=== PATIENT | male | born 1945 | race Caucasian/White ===

== ENCOUNTER 2020-12-24 11:26 | Outpatient (CLI) | payer MEDICARE, OTHER | END 2020-12-24 11:27 | disposition home or self-care (01) | LOC: CSHMRI 11:26 | PROVIDERS: ATTEND Neurological Surgery | DX: G95.89 Other specified diseases of spinal cord (principal); M47.812 Spondylosis without myelopathy or radiculopathy, cervical region | CPT/HCPCS: 72141 ==

== ENCOUNTER 2021-04-22 14:28 | Inpatient (IN) | payer MEDICARE, OTHER ==
[2021-04-22 15:08] LABS: #Eosinphils 0.2 10x3/uL (0.0-0.5); #Monocytes 0.7 10x3/uL (0.0-1.1); #Neutrophils 6.1 10x3/uL (1.5-8.4); %Basophils 0.2 % (0.0-2.0); %Eosinophils 2.3 % (0.0-6.0); %Lymphocytes 19.3 % (18.0-47.0); %Monocytes 7.8 % (0.0-10.0); %Neutrophils 70.1 % (40.0-75.0); Hemoglobin 10.4 g/dL (13.5-17.5); Mean Corpuscular HGB CONC 31.2 g/dL (32.0-36.0); Mean Platelet Volume 10.7 fl (7.4-10.4); Platelet Count 164 10x3/uL (150-450); RBC Distribution Width 15.4 % (11.5-14.5); Red Blood Cell (RBC) Count 3.47 10x6/uL (4.32-5.72); White Blood Cell (WBC) Count 8.7 10x3/uL (3.5-10.5)
[2021-04-22 15:25] LABS: ALT (SGPT) 17 U/L (8-55); AST (SGOT) 14 U/L (5-34); Albumin 3.4 g/dL (3.4-4.8); Alkaline Phosphatase 60 U/L (40-110); Anion Gap 13 mmol/L (10-20); BUN (Urea Nitrogen) 56 mg/dL (8.4-25.7); Bilirubin, Total 0.3 mg/dL (0.2-1.2); Calc. Creatinine Clearance 0 mL/min (70-130); Calcium 8.2 mg/dL (7.8-10.44); Carbon Dioxide 22 mmol/L (23-31); Chloride 114 mmol/L (98-107); Globulin 1.7 g/dL (2.4-3.5); Glucose 112 mg/dL (83-110); Potassium 5.7 mmol/L (3.5-5.1); Protein, Total 5.1 g/dL (5.8-8.1); Sodium 143 mmol/L (136-145)
[2021-04-22 15:48] LABS: CKMB 4.1 ng/mL (0-6.6)
[2021-04-22] MEDS ORDERED: Aspirin Chewable 81 MG TAB ONE (17:33)
[2021-04-22] MEDS ORDERED: Nitroglycerin 2% Ointment 1 INCH/1 GM Packet ONE (17:34)
[2021-04-22] MEDS ORDERED: Senokot S 8.6-50 MG TAB PO PRN (19:00)
[2021-04-22 19:52] VITALS: BMI 33.7
[2021-04-22] MEDS ORDERED: Amlodipine 5 MG TAB PO SCH (20:00)
[2021-04-22] MEDS ORDERED: hydrALAZINE 20 MG/ML VIAL SLOW IVP SCH (20:00)
[2021-04-22] MEDS ORDERED: Atorvastatin Calcium 20 MG TAB PO SCH (21:00)
[2021-04-22] MEDS ORDERED: hydrALAZINE 25 MG TAB PO SCH (21:00)
[2021-04-22] MEDS ORDERED: Famotidine 20 MG TAB PO SCH (21:00)
[2021-04-22] MEDS ORDERED: Tamsulosin HCl 0.4 MG CAP PO SCH (21:00)
[2021-04-22 21:49] LABS: Troponin I 0.041 ng/mL (< 0.028)
[2021-04-22] MEDS ORDERED: Gabapentin 100 MG CAP PO SCH (22:00)
[2021-04-22] MEDS ORDERED: Melatonin 3 MG TAB PO SCH (22:00)
[2021-04-23] MEDS: Acetaminophen 325 MG TAB PO PRN ×2 (02:58→10:53)
[2021-04-23] MEDS ORDERED: Furosemide 100 MG/10 ML VIAL SLOW IVP SCH (03:30)
[2021-04-23] MEDS ORDERED: Labetalol HCl 100 MG/20 ML VIAL SLOW IVP SCH (03:30)
[2021-04-23 04:36] LABS: ALT (SGPT) 15 U/L (8-55); AST (SGOT) 20 U/L (5-34); Albumin 2.9 g/dL (3.4-4.8); Alkaline Phosphatase 49 U/L (40-110); Anion Gap 14 mmol/L (10-20); BUN (Urea Nitrogen) 56 mg/dL (8.4-25.7); Bilirubin, Total 0.3 mg/dL (0.2-1.2); Calc. Creatinine Clearance 37 mL/min (70-130); Calcium 8.2 mg/dL (7.8-10.44); Carbon Dioxide 19 mmol/L (23-31); Chloride 115 mmol/L (98-107); Globulin 1.9 g/dL (2.4-3.5); Glucose 127 mg/dL (83-110); Potassium 5.7 mmol/L (3.5-5.1); Protein, Total 4.8 g/dL (5.8-8.1); Sodium 142 mmol/L (136-145)
[2021-04-23 04:39] LABS: #Eosinphils 0.2 10x3/uL (0.0-0.5); #Monocytes 0.7 10x3/uL (0.0-1.1); #Neutrophils 5.3 10x3/uL (1.5-8.4); %Basophils 0.4 % (0.0-2.0); %Eosinophils 2.1 % (0.0-6.0); %Lymphocytes 21.1 % (18.0-47.0); %Monocytes 9.1 % (0.0-10.0); %Neutrophils 66.8 % (40.0-75.0); Hemoglobin 9.9 g/dL (13.5-17.5); Mean Corpuscular HGB CONC 31.6 g/dL (32.0-36.0); Mean Corpuscular Hemoglobin 30.4 pg (27.0-33.0); Mean Platelet Volume 11.1 fl (7.4-10.4); Platelet Count 146 10x3/uL (150-450); RBC Distribution Width 15.3 % (11.5-14.5); Red Blood Cell (RBC) Count 3.26 10x6/uL (4.32-5.72)
[2021-04-23] MEDS ORDERED: Furosemide 40 MG TAB PO SCH (07:30)
[2021-04-23] MEDS ORDERED: Enoxaparin Sodium 30 MG/0.3 ML SYRINGE ONE (08:17)
[2021-04-23] MEDS: hydrALAZINE 20 MG/ML VIAL SLOW IVP PRN ×2 (08:18→16:20)
[2021-04-23] MEDS: hydrALAZINE 25 MG TAB PO SCH ×2 (08:40→15:17)
[2021-04-23] MEDS ORDERED: Amlodipine 10 MG TAB PO SCH (09:00)
[2021-04-23] MEDS ORDERED: Allopurinol 300 MG TAB PO SCH (09:00)
[2021-04-23] MEDS ORDERED: Enoxaparin Sodium 30 MG/0.3 ML SYRINGE SC SCH (09:00)
[2021-04-23 12:12] VITALS: BP 190/76; TEMP 97.8
[2021-04-23 15:26] LABS: #Eosinphils 0.2 10x3/uL (0.0-0.5); #Monocytes 0.7 10x3/uL (0.0-1.1); %Basophils 0.5 % (0.0-2.0); %Lymphocytes 17.7 % (18.0-47.0); %Monocytes 7.8 % (0.0-10.0); %Neutrophils 71.6 % (40.0-75.0); Hemoglobin 10.1 g/dL (13.5-17.5); Mean Corpuscular Hemoglobin 30.1 pg (27.0-33.0); Mean Corpuscular Volume 94.3 fl (81.2-95.1); Mean Platelet Volume 10.7 fl (7.4-10.4); Platelet Count 147 10x3/uL (150-450); RBC Distribution Width 15.3 % (11.5-14.5); Red Blood Cell (RBC) Count 3.35 10x6/uL (4.32-5.72); White Blood Cell (WBC) Count 8.4 10x3/uL (3.5-10.5)
[2021-04-23 15:38] LABS: Magnesium 1.9 mg/dL (1.6-2.6)
[2021-04-23 18:33] LABS: SARS-CoV-2 PCR by NAA Not Detected (NotDetected)
[2021-04-23] MEDS ORDERED: Donepezil HCl 5 MG TAB PO SCH (21:00)
== END 2021-04-23 16:52 | disposition left against medical advice (07) | DRG 683 ==
LOC: CSHERS 14:28 → SUATTDRO 14:28 → CSHTELE 19:47 → OBSVTOIN 19:48
PROVIDERS: ADMIT Family Medicine; ATTEND Family Medicine
DX: I12.9 Hypertensive chronic kidney disease with stage 1 through stage 4 chronic kidney disease, or unspecified chronic kidney disease (principal); N17.9 Acute kidney failure, unspecified; E78.5 Hyperlipidemia, unspecified; N40.0 Benign prostatic hyperplasia without lower urinary tract symptoms; Z20.822 Contact with and (suspected) exposure to COVID-19; N18.9 Chronic kidney disease, unspecified; F32.A Depression, unspecified; Z88.8 Allergy status to other drugs, medicaments and biological substances; Z79.899 Other long term (current) drug therapy
CPT/HCPCS: 36415; 71045; 80053; 82553; 83735; 83880; 84484; 85025; 93005; 93010; G0378; J0360; J1650; J1940; U0003; U0005

== ENCOUNTER 2021-12-20 10:06 | Emergency (ER) | payer MEDICARE ==
[2021-12-20 10:35] LABS: #Eosinphils 0.2 10x3/uL (0.0-0.5); #Monocytes 0.7 10x3/uL (0.0-1.1); #Neutrophils 4.7 10x3/uL (1.5-8.4); %Basophils 0.5 % (0.0-2.0); %Eosinophils 2.3 % (0.0-6.0); %Lymphocytes 35.1 % (18.0-47.0); %Monocytes 7.6 % (0.0-10.0); Hemoglobin 8.1 g/dL (13.5-17.5); Mean Corpuscular HGB CONC 32.1 g/dL (32.0-36.0); Mean Corpuscular Hemoglobin 30.3 pg (27.0-33.0); Mean Corpuscular Volume 94.4 fl (81.2-95.1); Mean Platelet Volume 10.6 fl (7.4-10.4); Platelet Count 156 10x3/uL (150-450); RBC Distribution Width 14.7 % (11.5-14.5); Red Blood Cell (RBC) Count 2.67 10x6/uL (4.32-5.72); White Blood Cell (WBC) Count 8.8 10x3/uL (3.5-10.5)
[2021-12-20 11:24] LABS: CKMB 2.4 ng/mL (0-6.6)
[2021-12-20 11:38] LABS: ALT (SGPT) 10 U/L (8-55); AST (SGOT) 18 U/L (5-34); Albumin 3.5 g/dL (3.4-4.8); Alkaline Phosphatase 75 U/L (40-110); Anion Gap 15 mmol/L (10-20); BUN (Urea Nitrogen) 35 mg/dL (8.4-25.7); Bilirubin, Total 0.5 mg/dL (0.2-1.2); Calc. Creatinine Clearance 0 mL/min (70-130); Calcium 8.6 mg/dL (7.8-10.44); Carbon Dioxide 20 mmol/L (23-31); Chloride 113 mmol/L (98-107); Estimated GFR 22; Globulin 2.1 g/dL (2.4-3.5); Glucose 154 mg/dL (83-110); Lipase 64 U/L (8-78); Potassium 3.7 mmol/L (3.5-5.1); Protein, Total 5.6 g/dL (5.8-8.1); Sodium 144 mmol/L (136-145)
== END 2021-12-20 13:50 | disposition short-term general hospital (02) ==
LOC: CSHERS 10:06
DX: I11.0 Hypertensive heart disease with heart failure (principal); I50.9 Heart failure, unspecified; I48.91 Unspecified atrial fibrillation; E78.5 Hyperlipidemia, unspecified; E78.00 Pure hypercholesterolemia, unspecified; K21.9 Gastro-esophageal reflux disease without esophagitis
CPT/HCPCS: 71045; 80053; 82553; 83690; 83880; 84484; 85025; 93005; 94760

== ENCOUNTER 2022-01-23 22:23 | Emergency (ER) | payer OTHER ==
[2022-01-23 23:14] LABS: #Basophils 0.1 10x3/uL (0.0-0.2); #Eosinphils 0.1 10x3/uL (0.0-0.5); #Monocytes 0.8 10x3/uL (0.0-1.1); #Neutrophils 5.6 10x3/uL (1.5-8.4); %Basophils 0.6 % (0.0-2.0); %Eosinophils 0.9 % (0.0-6.0); %Lymphocytes 15.5 % (18.0-47.0); %Monocytes 10.3 % (0.0-10.0); %Neutrophils 72.2 % (40.0-75.0); Hemoglobin 6.9 g/dL (13.5-17.5); Mean Corpuscular HGB CONC 31.8 g/dL (32.0-36.0); Mean Corpuscular Hemoglobin 28.6 pg (27.0-33.0); Mean Platelet Volume 9.3 fl (7.4-10.4); Platelet Count 225 10x3/uL (150-450); RBC Distribution Width 15.1 % (11.5-14.5); Red Blood Cell (RBC) Count 2.41 10x6/uL (4.32-5.72); White Blood Cell (WBC) Count 7.7 10x3/uL (3.5-10.5)
[2022-01-23 23:33] LABS: ALT (SGPT) 17 U/L (8-55); AST (SGOT) 20 U/L (5-34); Albumin 2.9 g/dL (3.4-4.8); Alkaline Phosphatase 95 U/L (40-110); Anion Gap 14 mmol/L (10-20); BUN (Urea Nitrogen) 52 mg/dL (8.4-25.7); Bilirubin, Total 0.3 mg/dL (0.2-1.2); Calc. Creatinine Clearance 0 mL/min (70-130); Calcium 8.3 mg/dL (7.8-10.44); Carbon Dioxide 18 mmol/L (23-31); Chloride 114 mmol/L (98-107); Estimated GFR 16; Globulin 2.5 g/dL (2.4-3.5); Glucose 109 mg/dL (83-110); Magnesium 1.9 mg/dL (1.6-2.6); Potassium 5.9 mmol/L (3.5-5.1); Protein, Total 5.4 g/dL (5.8-8.1); Sodium 140 mmol/L (136-145)
[2022-01-23 23:56] LABS: CKMB 1.9 ng/mL (0-6.6)
== END 2022-01-24 01:32 | disposition short-term general hospital (02) ==
LOC: CSHERS 22:23
DX: D64.9 Anemia, unspecified (principal); R79.89 Other specified abnormal findings of blood chemistry; R53.1 Weakness; K21.9 Gastro-esophageal reflux disease without esophagitis; E78.00 Pure hypercholesterolemia, unspecified; I10 Essential (primary) hypertension
CPT/HCPCS: 36415; 71045; 80053; 82553; 83735; 83880; 84484; 85025; 86850; 86900; 86901; 93005

== ENCOUNTER 2022-04-05 14:03 | Outpatient (CLI) | payer OTHER, MEDICARE | END 2022-04-05 14:04 | disposition home or self-care (01) | LOC: CSHRAD 14:03 | PROVIDERS: ATTEND Thoracic Surgery (Cardiothoracic Vascular Surgery) | DX: J86.9 Pyothorax without fistula (principal); J90 Pleural effusion, not elsewhere classified | CPT/HCPCS: 71046 ==

== ENCOUNTER 2022-05-05 13:19 | Inpatient (IN) | payer OTHER, MEDICARE ==
[2022-05-05 14:28] LABS: #Eosinphils 0.1 10x3/uL (0.0-0.5); #Monocytes 0.8 10x3/uL (0.0-1.1); #Neutrophils 8.3 10x3/uL (1.5-8.4); %Basophils 0.4 % (0.0-2.0); %Eosinophils 0.7 % (0.0-6.0); %Lymphocytes 15.8 % (18.0-47.0); %Monocytes 7.1 % (0.0-10.0); %Neutrophils 75.5 % (40.0-75.0); Mean Corpuscular HGB CONC 33.2 g/dL (32.0-36.0); Mean Corpuscular Hemoglobin 30.7 pg (27.0-33.0); Mean Corpuscular Volume 92.3 fl (81.2-95.1); Mean Platelet Volume 10.9 fl (7.4-10.4); Platelet Count 128 10x3/uL (150-450); RBC Distribution Width 17.3 % (11.5-14.5); Red Blood Cell (RBC) Count 2.61 10x6/uL (4.32-5.72)
[2022-05-05 14:40] LABS: ALT (SGPT) 12 U/L (8-55); AST (SGOT) 16 U/L (5-34); Albumin 3.3 g/dL (3.4-4.8); Alkaline Phosphatase 58 U/L (40-110); Anion Gap 12 mmol/L (10-20); BUN (Urea Nitrogen) 67 mg/dL (8.4-25.7); Bilirubin, Total 0.4 mg/dL (0.2-1.2); Calc. Creatinine Clearance 0 mL/min (70-130); Calcium 8.4 mg/dL (7.8-10.44); Carbon Dioxide 17 mmol/L (23-31); Chloride 118 mmol/L (98-107); Estimated GFR 16; Glucose 110 mg/dL (83-110); Protein, Total 5.3 g/dL (5.8-8.1); Sodium 143 mmol/L (136-145)
[2022-05-05] MEDS ORDERED: Naloxone HCl 0.4 mg/ml Vial ONE (15:38)
[2022-05-05 18:47] LABS: Bilirubin Neg (Negative); Blood, Urine 25 (Negative); Clarity Clear (Clear); Glucose, Urine (Dipstick) Normal (Negative); Ketone, Urine Negative (Negative); Leukocyte Negative (Negative); Nitrite Negative (Negative); Protein, Urine (Dipstick) 100 mg/dl (Neg-Trace); Specific Gravity, Urine 1.015 (1.005-1.030); Urobilinogen Normal mg/dL (Less than 2)
[2022-05-05 19:05] LABS: WBC/HPF 0-3 HPF (0-3)
[2022-05-05 19:07] LABS: Bacteria/HPF 1+ HPF (None Seen); Squamous Epithelial 0-3 HPF (0-3)
[2022-05-05] MEDS ORDERED: Acetaminophen 650 MG Suppository PR PRN (19:21)
[2022-05-05] MEDS ORDERED: Ondansetron ODT 4 MG TAB PO PRN (19:21)
[2022-05-05] MEDS ORDERED: Ondansetron PF 4 MG/2 ML Vial IVP PRN (19:21)
[2022-05-05] MEDS ORDERED: HumaLOG 300 UNITS/3 ML VIAL SC PRN ×2 (19:27)
[2022-05-05] MEDS ORDERED: Dextrose 50% Abboject 50 ML SYRINGE SLOW IVP PRN (19:27)
[2022-05-05] MEDS ORDERED: Dextrose 5% in Water 1,000 ML IV PRN (19:27)
[2022-05-05] MEDS ORDERED: Lactated Ringer's 1,000 ML IV SCH (22:00)
[2022-05-05] MEDS ORDERED: Sodium Bicarbonate Tab 325 MG TAB PO SCH (22:00)
[2022-05-05 22:02] LABS: SARS-CoV-2 NAA Rapid Test Not Detected (NotDetected)
[2022-05-05] MEDS ORDERED: metroNIDAZOLE 500 MG/100 ML BAG ONE (22:22)
[2022-05-05] MEDS: metroNIDAZOLE 500 MG in Premix Bag 1 BAG IVPB SCH (22:31)
[2022-05-06] MEDS ORDERED: Amlodipine 5 MG TAB ONE ×2 (03:17→03:19)
[2022-05-06 03:26] LABS: #Eosinphils 0.1 10x3/uL (0.0-0.5); #Monocytes 0.4 10x3/uL (0.0-1.1); #Neutrophils 3.3 10x3/uL (1.5-8.4); %Basophils 0.6 % (0.0-2.0); %Eosinophils 2.4 % (0.0-6.0); %Lymphocytes 26.1 % (18.0-47.0); %Monocytes 8.1 % (0.0-10.0); %Neutrophils 62.2 % (40.0-75.0); Mean Corpuscular HGB CONC 33.1 g/dL (32.0-36.0); Mean Corpuscular Hemoglobin 30.5 pg (27.0-33.0); Mean Corpuscular Volume 92.4 fl (81.2-95.1); Mean Platelet Volume 10.8 fl (7.4-10.4); Platelet Count 113 10x3/uL (150-450); RBC Distribution Width 17.4 % (11.5-14.5); Red Blood Cell (RBC) Count 2.62 10x6/uL (4.32-5.72); White Blood Cell (WBC) Count 5.3 10x3/uL (3.5-10.5)
[2022-05-06 03:45] LABS: ALT (SGPT) 11 U/L (8-55); AST (SGOT) 17 U/L (5-34); Albumin 3.1 g/dL (3.4-4.8); Alkaline Phosphatase 51 U/L (40-110); Anion Gap 14 mmol/L (10-20); BUN (Urea Nitrogen) 66 mg/dL (8.4-25.7); Bilirubin, Total 0.4 mg/dL (0.2-1.2); Calc. Creatinine Clearance 0 mL/min (70-130); Calcium 8.4 mg/dL (7.8-10.44); Carbon Dioxide 16 mmol/L (23-31); Chloride 119 mmol/L (98-107); Estimated GFR 17; Globulin 2.1 g/dL (2.4-3.5); Glucose 95 mg/dL (83-110); Magnesium 1.8 mg/dL (1.6-2.6); Potassium 4.3 mmol/L (3.5-5.1); Protein, Total 5.2 g/dL (5.8-8.1); Sodium 145 mmol/L (136-145)
[2022-05-06] MEDS ORDERED: Bacitracin 1 PK ONE (04:09)
[2022-05-06] MEDS ORDERED: Sodium Bicarbonate Tab 325 MG TAB PO SCH ×3 (05:00→18:00)
[2022-05-06] MEDS ORDERED: Magnesium Oxide 400 MG TAB PO SCH (05:00)
[2022-05-06] MEDS ORDERED: metroNIDAZOLE 500 MG/100 ML BAG ONE ×2 (05:29→14:17)
[2022-05-06] MEDS: metroNIDAZOLE 500 MG in Premix Bag 1 BAG IVPB SCH ×3 (05:47→21:01)
[2022-05-06 07:28] VITALS: BMI 25.8
[2022-05-06] MEDS ORDERED: Famotidine 20 MG TAB ONE (08:41)
[2022-05-06] MEDS: Sodium Bicarbonate 150 MEQ in Dextrose 5% in Water 1,000 ML IV SCH ×2 (08:49→18:28)
[2022-05-06] MEDS ORDERED: Famotidine/PF 20 mg/2ml Vial SLOW IVP SCH (09:00)
[2022-05-06] MEDS ORDERED: Famotidine 20 MG TAB PO SCH (09:00)
[2022-05-06 10:38] LABS: Creatinine, Urine 32.93 mg/dL (63-166)
[2022-05-06] MEDS ORDERED: hydrALAZINE 25 MG TAB ONE (14:17)
[2022-05-06] MEDS: hydrALAZINE 25 MG TAB PO SCH ×2 (14:22→20:59)
[2022-05-06] MEDS: Acetaminophen 325 MG TAB PO PRN (17:16)
[2022-05-06] MEDS ORDERED: Nitroglycerin 0.4 MG TAB (25 Tab Bottle) SL PRN (18:02)
[2022-05-06] MEDS ORDERED: clonazePAM 1 MG TAB PO PRN ×2 (18:02→18:15)
[2022-05-06] MEDS ORDERED: Naloxone HCl 0.4 mg/ml Vial IV PRN (18:14)
[2022-05-06] MEDS: Doxazosin 2 MG TAB PO SCH (20:57)
[2022-05-06] MEDS: Pregabalin 50 MG CAP PO SCH (20:58)
[2022-05-06] MEDS: busPIRone HCl 5 MG TAB PO SCH (20:59)
[2022-05-06] MEDS: FLUoxetine HCl 20 MG CAP PO SCH (20:59)
[2022-05-06] MEDS: Atorvastatin Calcium 20 MG TAB PO SCH (20:59)
[2022-05-06] MEDS: traZODone HCl 50 MG TAB PO SCH (21:01)
[2022-05-06] MEDS ORDERED: VANCOMYCIN 1.25 GM/250 ML BAG IVPB SCH (23:00)
[2022-05-06] MEDS ORDERED: VANCOMYCIN 1.25 GM/250 ML BAG 1.25 GM in Premix Bag 1 BAG IVPB SCH (23:59)
[2022-05-07] MEDS ORDERED: hydrALAZINE 25 MG TAB PO SCH (01:30)
[2022-05-07] MEDS: Sodium Bicarbonate 150 MEQ in Dextrose 5% in Water 1,000 ML IV SCH (02:29)
[2022-05-07] MEDS: HYDROcodone/Acetaminophen 5/325 mg Tablet PO PRN ×3 (02:33→22:43)
[2022-05-07] MEDS: metroNIDAZOLE 500 MG in Premix Bag 1 BAG IVPB SCH ×3 (05:31→21:08)
[2022-05-07 05:58] LABS: #Eosinphils 0.1 10x3/uL (0.0-0.5); #Monocytes 0.7 10x3/uL (0.0-1.1); #Neutrophils 4.4 10x3/uL (1.5-8.4); %Basophils 0.4 % (0.0-2.0); %Eosinophils 1.3 % (0.0-6.0); %Lymphocytes 24.3 % (18.0-47.0); %Monocytes 9.7 % (0.0-10.0); %Neutrophils 63.9 % (40.0-75.0); Hemoglobin 7.5 g/dL (13.5-17.5); Mean Corpuscular HGB CONC 33.6 g/dL (32.0-36.0); Mean Corpuscular Hemoglobin 30.1 pg (27.0-33.0); Mean Corpuscular Volume 89.6 fl (81.2-95.1); Mean Platelet Volume 11.3 fl (7.4-10.4); Platelet Count 113 10x3/uL (150-450); RBC Distribution Width 17.2 % (11.5-14.5); Red Blood Cell (RBC) Count 2.49 10x6/uL (4.32-5.72); White Blood Cell (WBC) Count 6.8 10x3/uL (3.5-10.5)
[2022-05-07 06:07] LABS: Anion Gap 12 mmol/L (10-20); BUN (Urea Nitrogen) 63 mg/dL (8.4-25.7); Calc. Creatinine Clearance 23 mL/min (70-130); Calcium 8.3 mg/dL (7.8-10.44); Carbon Dioxide 20 mmol/L (23-31); Chloride 115 mmol/L (98-107); Estimated GFR 20; Glucose 98 mg/dL (83-110); Magnesium 1.7 mg/dL (1.6-2.6); Phosphorus 3.7 mg/dL (2.3-4.7); Potassium 4.5 mmol/L (3.5-5.1); Sodium 142 mmol/L (136-145)
[2022-05-07] MEDS: hydrALAZINE 25 MG TAB PO SCH ×3 (06:09→21:07)
[2022-05-07] MEDS: Acetaminophen 325 MG TAB PO PRN (06:10)
[2022-05-07] MEDS: Multivitamin W/ Minerals 1 TAB PO SCH (09:04)
[2022-05-07] MEDS: FLUoxetine HCl 20 MG CAP PO SCH ×2 (09:04→21:07)
[2022-05-07] MEDS: Ferrous Sulfate 325 MG TAB PO SCH (09:04)
[2022-05-07] MEDS: Donepezil HCl 5 MG TAB PO SCH (09:04)
[2022-05-07] MEDS: Allopurinol 300 MG TAB PO SCH (09:04)
[2022-05-07] MEDS: Pregabalin 50 MG CAP PO SCH ×2 (09:05→21:06)
[2022-05-07] MEDS: busPIRone HCl 5 MG TAB PO SCH ×2 (09:05→21:07)
[2022-05-07] MEDS: Cyanocobalamin (Vitamin B-12) 1,000 MCG TAB PO SCH (09:05)
[2022-05-07] MEDS: Finasteride 5 MG TAB PO SCH (09:05)
[2022-05-07] MEDS: Sodium Bicarbonate Tab 325 MG TAB PO SCH ×3 (09:10→21:05)
[2022-05-07] MEDS: Empagliflozin 10 MG TAB PO SCH (09:14)
[2022-05-07 10:10] LABS: Iron 34 ug/dL (65-175); Iron Binding Capacity, Total 160 mcg/dL (261-462)
[2022-05-07] MEDS: Doxazosin 2 MG TAB PO SCH (21:07)
[2022-05-07] MEDS: Atorvastatin Calcium 20 MG TAB PO SCH (21:07)
[2022-05-07] MEDS: traZODone HCl 50 MG TAB PO SCH (21:07)
[2022-05-08] MEDS ORDERED: hydrALAZINE 25 MG TAB PO SCH ×3 (00:30→14:00)
[2022-05-08] MEDS: metroNIDAZOLE 500 MG in Premix Bag 1 BAG IVPB SCH (06:01)
[2022-05-08] MEDS: hydrALAZINE 25 MG TAB PO SCH (06:02)
[2022-05-08 06:26] LABS: #Eosinphils 0.2 10x3/uL (0.0-0.5); #Monocytes 0.6 10x3/uL (0.0-1.1); #Neutrophils 2.9 10x3/uL (1.5-8.4); %Basophils 0.7 % (0.0-2.0); %Eosinophils 2.8 % (0.0-6.0); %Lymphocytes 33.4 % (18.0-47.0); %Monocytes 11.3 % (0.0-10.0); %Neutrophils 51.6 % (40.0-75.0); Hemoglobin 6.9 g/dL (13.5-17.5); Mean Corpuscular HGB CONC 33.3 g/dL (32.0-36.0); Mean Corpuscular Hemoglobin 29.9 pg (27.0-33.0); Mean Corpuscular Volume 89.6 fl (81.2-95.1); Mean Platelet Volume 10.6 fl (7.4-10.4); Platelet Count 111 10x3/uL (150-450); RBC Distribution Width 17.2 % (11.5-14.5); Red Blood Cell (RBC) Count 2.31 10x6/uL (4.32-5.72); White Blood Cell (WBC) Count 5.7 10x3/uL (3.5-10.5)
[2022-05-08 06:41] LABS: Anion Gap 12 mmol/L (10-20); BUN (Urea Nitrogen) 66 mg/dL (8.4-25.7); Calc. Creatinine Clearance 22 mL/min (70-130); Calcium 8.2 mg/dL (7.8-10.44); Carbon Dioxide 20 mmol/L (23-31); Chloride 116 mmol/L (98-107); Estimated GFR 20; Glucose 94 mg/dL (83-110); Potassium 4.5 mmol/L (3.5-5.1); Sodium 143 mmol/L (136-145)
[2022-05-08] MEDS ORDERED: Lidocaine 5% Patch TD SCH (09:00)
[2022-05-08 09:44] LABS: Hemoglobin 7.5 g/dL (13.5-17.5); Platelet Count 107 10x3/uL (150-450)
[2022-05-08] MEDS: Sodium Bicarbonate Tab 325 MG TAB PO SCH (09:57)
[2022-05-08] MEDS: Multivitamin W/ Minerals 1 TAB PO SCH (09:57)
[2022-05-08] MEDS: Allopurinol 300 MG TAB PO SCH (09:57)
[2022-05-08] MEDS: Pregabalin 50 MG CAP PO SCH (09:57)
[2022-05-08] MEDS: Donepezil HCl 5 MG TAB PO SCH (09:58)
[2022-05-08] MEDS: busPIRone HCl 5 MG TAB PO SCH (09:59)
[2022-05-08] MEDS: FLUoxetine HCl 20 MG CAP PO SCH (09:59)
[2022-05-08] MEDS: Empagliflozin 10 MG TAB PO SCH (10:00)
[2022-05-08] MEDS: Finasteride 5 MG TAB PO SCH (10:00)
[2022-05-08] MEDS ORDERED: EPOETIN ALFA-EPBX (ESRD) 10,000 UNIT/ML VIAL SC SCH (10:00)
[2022-05-08] MEDS: Cyanocobalamin (Vitamin B-12) 1,000 MCG TAB PO SCH (10:00)
[2022-05-08] MEDS: Ferrous Sulfate 325 MG TAB PO SCH (10:18)
[2022-05-08 11:33] VITALS: BP 170/65; TEMP 97.3
[2022-05-08] MEDS ORDERED: Transdermal Patch Removal TOP SCH (21:00)
[2022-05-08] MEDS ORDERED: Ferrous Sulfate 325 MG TAB PO SCH (21:00)
== END 2022-05-08 15:15 | disposition home or self-care (01) | DRG 880 ==
LOC: CSHERS 13:19 → CSHERHOLD 21:43 → CSHTELE 05-06 14:48
PROVIDERS: ADMIT Student in an Organized Health Care Education/Training Program; ATTEND Family Medicine
DX: F41.9 Anxiety disorder, unspecified (principal); I50.32 Chronic diastolic (congestive) heart failure; E87.20 Acidosis, unspecified; I13.0 Hypertensive heart and chronic kidney disease with heart failure and stage 1 through stage 4 chronic kidney disease, or unspecified chronic kidney disease; N18.4 Chronic kidney disease, stage 4 (severe); N17.9 Acute kidney failure, unspecified; N39.0 Urinary tract infection, site not specified; F43.10 Post-traumatic stress disorder, unspecified; J44.9 Chronic obstructive pulmonary disease, unspecified; E78.5 Hyperlipidemia, unspecified; I48.91 Unspecified atrial fibrillation; D63.1 Anemia in chronic kidney disease; G89.29 Other chronic pain; G25.81 Restless legs syndrome; F32.A Depression, unspecified; N40.0 Benign prostatic hyperplasia without lower urinary tract symptoms; K21.9 Gastro-esophageal reflux disease without esophagitis; E11.42 Type 2 diabetes mellitus with diabetic polyneuropathy; F03.90 Unspecified dementia, unspecified severity, without behavioral disturbance, psychotic disturbance, mood disturbance, and anxiety; R19.7 Diarrhea, unspecified; E11.22 Type 2 diabetes mellitus with diabetic chronic kidney disease; Z20.822 Contact with and (suspected) exposure to COVID-19; Z88.8 Allergy status to other drugs, medicaments and biological substances; Z79.899 Other long term (current) drug therapy; Z79.51 Long term (current) use of inhaled steroids; Z98.890 Other specified postprocedural states; Z90.49 Acquired absence of other specified parts of digestive tract
CPT/HCPCS: 36415; 36416; 51701; 70450; 71045; 72125; 74176; 80048; 80053; 81003; 81015; 82040; 82550; 82570; 82728; 83540; 83550; 83735; 83880; 84100; 84156; 84300; 84540; 85025; 86850; 86900; 86901; 87040; 87077; 87086; 87149; 93005; 94760; 96374; J1815; J1956; J2310; J3370; J7070; J7120; Q5105; U0002

== ENCOUNTER 2022-05-10 10:40 | Inpatient (IN) | payer MEDICARE, OTHER ==
[2022-05-10 12:32] LABS: #Eosinphils 0.3 10x3/uL (0.0-0.5); #Monocytes 0.6 10x3/uL (0.0-1.1); #Neutrophils 2.7 10x3/uL (1.5-8.4); %Basophils 0.6 % (0.0-2.0); %Eosinophils 5.1 % (0.0-6.0); %Lymphocytes 28.7 % (18.0-47.0); %Monocytes 10.9 % (0.0-10.0); %Neutrophils 53.5 % (40.0-75.0); Hemoglobin 7.4 g/dL (13.5-17.5); Mean Corpuscular HGB CONC 32.7 g/dL (32.0-36.0); Mean Corpuscular Hemoglobin 30.6 pg (27.0-33.0); Mean Corpuscular Volume 93.4 fl (81.2-95.1); Platelet Count 121 10x3/uL (150-450); RBC Distribution Width 17.2 % (11.5-14.5); Red Blood Cell (RBC) Count 2.42 10x6/uL (4.32-5.72); White Blood Cell (WBC) Count 5.1 10x3/uL (3.5-10.5)
[2022-05-10] MEDS ORDERED: Nitroglycerin 0.4 MG TAB (25 Tab Bottle) SL PRN (12:45)
[2022-05-10] MEDS ORDERED: clonazePAM 1 MG TAB PO PRN (12:45)
[2022-05-10 12:49] LABS: ALT (SGPT) 13 U/L (8-55); AST (SGOT) 19 U/L (5-34); Albumin 3.1 g/dL (3.4-4.8); Alkaline Phosphatase 57 U/L (40-110); Anion Gap 11 mmol/L (10-20); BUN (Urea Nitrogen) 63 mg/dL (8.4-25.7); Bilirubin, Total 0.2 mg/dL (0.2-1.2); Calc. Creatinine Clearance 0 mL/min (70-130); Calcium 8.4 mg/dL (7.8-10.44); Carbon Dioxide 20 mmol/L (23-31); Chloride 112 mmol/L (98-107); Estimated GFR 18; Glucose 102 mg/dL (83-110); Potassium 4.3 mmol/L (3.5-5.1); Protein, Total 5.1 g/dL (5.8-8.1); Sodium 139 mmol/L (136-145)
[2022-05-10] MEDS ORDERED: Senokot S 8.6-50 MG TAB PO PRN (13:19)
[2022-05-10] MEDS ORDERED: Acetaminophen 325 MG TAB PO PRN (13:19)
[2022-05-10 14:41] VITALS: BMI 31.1
[2022-05-10] MEDS: HYDROcodone/Acetaminophen 7.5/325 mg Tablet PO PRN ×2 (14:51→21:06)
[2022-05-10] MEDS: hydrALAZINE 25 MG TAB PO SCH ×2 (14:52→20:55)
[2022-05-10] MEDS: Micafungin 100 MG in Sodium Chloride 0.9% 100 ML IVPB SCH (15:39)
[2022-05-10] MEDS: Carvedilol 12.5 MG TAB PO SCH (16:02)
[2022-05-10] MEDS ORDERED: AMPicillin 1 GM in Sodium Chloride 0.9% 100 ML IVPB SCH (18:00)
[2022-05-10] MEDS: busPIRone HCl 5 MG TAB PO SCH (20:54)
[2022-05-10] MEDS: AMPicillin 1 GM in Sodium Chloride 0.9% 100 ML IVPB SCH (20:54)
[2022-05-10] MEDS: FLUoxetine HCl 20 MG CAP PO SCH (20:55)
[2022-05-10] MEDS ORDERED: Atorvastatin Calcium 20 MG TAB PO SCH (21:00)
[2022-05-10] MEDS ORDERED: Pregabalin 50 MG CAP PO SCH (21:00)
[2022-05-10] MEDS ORDERED: Doxazosin 2 MG TAB PO SCH (21:00)
[2022-05-10] MEDS: Heparin 5,000 UNITS/ML VIAL SC SCH (21:30)
[2022-05-11 05:05] LABS: #Eosinphils 0.3 10x3/uL (0.0-0.5); #Monocytes 0.5 10x3/uL (0.0-1.1); #Neutrophils 2.1 10x3/uL (1.5-8.4); %Basophils 0.8 % (0.0-2.0); %Eosinophils 6.1 % (0.0-6.0); %Lymphocytes 38.7 % (18.0-47.0); %Monocytes 9.6 % (0.0-10.0); %Neutrophils 44.2 % (40.0-75.0); Hemoglobin 7.8 g/dL (13.5-17.5); Mean Corpuscular HGB CONC 33.2 g/dL (32.0-36.0); Mean Corpuscular Hemoglobin 30.4 pg (27.0-33.0); Mean Corpuscular Volume 91.4 fl (81.2-95.1); Mean Platelet Volume 11.8 fl (7.4-10.4); Platelet Count 118 10x3/uL (150-450); RBC Distribution Width 17.2 % (11.5-14.5); Red Blood Cell (RBC) Count 2.57 10x6/uL (4.32-5.72); White Blood Cell (WBC) Count 4.8 10x3/uL (3.5-10.5)
[2022-05-11 05:15] LABS: SARS-CoV-2 NAA Rapid Test Not Detected (NotDetected)
[2022-05-11 05:18] LABS: Anion Gap 14 mmol/L (10-20); BUN (Urea Nitrogen) 58 mg/dL (8.4-25.7); Calc. Creatinine Clearance 27 mL/min (70-130); Calcium 8.4 mg/dL (7.8-10.44); Carbon Dioxide 19 mmol/L (23-31); Chloride 115 mmol/L (98-107); Estimated GFR 20; Glucose 92 mg/dL (83-110); Potassium 4.5 mmol/L (3.5-5.1); Sodium 143 mmol/L (136-145)
[2022-05-11 06:04] LABS: Platelet Morphology Comment Appears Decreased
[2022-05-11 06:05] LABS: Ovalocytes SLIGHT = 2-5 cells (100X) (0-1/hpf)
[2022-05-11] MEDS ORDERED: Allopurinol 300 MG TAB PO SCH (09:00)
[2022-05-11] MEDS ORDERED: Bumetanide 1 MG TAB PO SCH (09:00)
[2022-05-11] MEDS ORDERED: Finasteride 5 MG TAB PO SCH (09:00)
[2022-05-11] MEDS ORDERED: Empagliflozin 10 MG TAB PO SCH (09:00)
[2022-05-11] MEDS ORDERED: Donepezil HCl 5 MG TAB PO SCH (09:00)
[2022-05-11] MEDS ORDERED: Ferrous Sulfate 325 MG TAB PO SCH (09:00)
[2022-05-11] MEDS ORDERED: Cyanocobalamin (Vitamin B-12) 1,000 MCG TAB PO SCH (09:00)
[2022-05-11] MEDS: hydrALAZINE 25 MG TAB PO SCH ×2 (09:15→14:10)
[2022-05-11] MEDS: FLUoxetine HCl 20 MG CAP PO SCH (09:16)
[2022-05-11] MEDS: Sodium Bicarbonate Tab 325 MG TAB PO SCH ×2 (09:16→16:10)
[2022-05-11] MEDS: busPIRone HCl 5 MG TAB PO SCH (09:17)
[2022-05-11] MEDS: Carvedilol 12.5 MG TAB PO SCH ×2 (09:18→16:10)
[2022-05-11] MEDS: AMPicillin 1 GM in Sodium Chloride 0.9% 100 ML IVPB SCH (09:18)
[2022-05-11] MEDS: Heparin 5,000 UNITS/ML VIAL SC SCH (09:19)
[2022-05-11] MEDS: Micafungin 100 MG in Sodium Chloride 0.9% 100 ML IVPB SCH (14:16)
[2022-05-11] MEDS: HYDROcodone/Acetaminophen 7.5/325 mg Tablet PO PRN (14:17)
[2022-05-11] MEDS ORDERED: cloNIDine 0.1 MG TAB PO PRN (16:05)
[2022-05-11 21:01] VITALS: BP 205/83; TEMP 98.4
== END 2022-05-11 17:50 | disposition home or self-care (01) | DRG 868 ==
LOC: CSHERS 10:40 → CSHTELE 13:30
PROVIDERS: ADMIT Internal Medicine; ATTEND Internal Medicine
DX: B49 Unspecified mycosis (principal); E44.0 Moderate protein-calorie malnutrition; R78.81 Bacteremia; I48.20 Chronic atrial fibrillation, unspecified; I50.32 Chronic diastolic (congestive) heart failure; N18.4 Chronic kidney disease, stage 4 (severe); N17.9 Acute kidney failure, unspecified; E87.20 Acidosis, unspecified; I13.0 Hypertensive heart and chronic kidney disease with heart failure and stage 1 through stage 4 chronic kidney disease, or unspecified chronic kidney disease; F31.9 Bipolar disorder, unspecified; K21.9 Gastro-esophageal reflux disease without esophagitis; E78.5 Hyperlipidemia, unspecified; J44.9 Chronic obstructive pulmonary disease, unspecified; G89.29 Other chronic pain; G25.81 Restless legs syndrome; F03.90 Unspecified dementia, unspecified severity, without behavioral disturbance, psychotic disturbance, mood disturbance, and anxiety; N40.0 Benign prostatic hyperplasia without lower urinary tract symptoms; E11.22 Type 2 diabetes mellitus with diabetic chronic kidney disease; E11.42 Type 2 diabetes mellitus with diabetic polyneuropathy; M54.50 Low back pain, unspecified; D63.1 Anemia in chronic kidney disease; D50.9 Iron deficiency anemia, unspecified; I25.10 Atherosclerotic heart disease of native coronary artery without angina pectoris; Z20.822 Contact with and (suspected) exposure to COVID-19; Z68.31 Body mass index [BMI] 31.0-31.9, adult; Z90.49 Acquired absence of other specified parts of digestive tract; Z88.8 Allergy status to other drugs, medicaments and biological substances; Z79.51 Long term (current) use of inhaled steroids; Z79.899 Other long term (current) drug therapy; Z98.890 Other specified postprocedural states
CPT/HCPCS: 36415; 72131; 80048; 80053; 83605; 83880; 85025; 86850; 86900; 86901; 87040; 87086; 87449; 93306; 94760; J0290; J1644; J2248; J3490; U0002